=== PATIENT | male | born 1935 | race Caucasian/White ===

== ENCOUNTER 2019-01-27 06:51 | Observation (INO) ==
[2019-01-27] MEDS ORDERED: MIDAZOLAM HCL 1 MG/ML 2ML VIAL ONE (08:23)
[2019-01-27] MEDS ORDERED: HEPARIN (PORCINE) 1000 UNIT/ML 10 ML (CATH LAB USE ONLY) ONE (08:23)
[2019-01-27] MEDS ORDERED: NiCARDipine HCL INJ 2.5 MG/ML 10 ML AMP ONE (08:23)
[2019-01-27] MEDS ORDERED: fentaNYL citrate 100 MCG/2 ML VIAL ONE (08:23)
[2019-01-27] MEDS ORDERED: NITROGLYCERIN/D5W 100MCG/ML 20ML SYR ONE (08:24)
--- NOTE | 2019-01-27 08:33 | History & Physical Bridge Note ---
Date of Service January 27, 2019 History & Physical Bridge Note I have examined the patient, reviewed the History & Physical and in the interval since the performance of the History & Physical I have noted the following changes of clinical significance: no changes noted. I have explained the risk benefit and intent of the procedure to the patient and he is willing to proceed.
[2019-01-27] MEDS ORDERED: CLOPIDOGREL BISULFATE 300 MG TAB ONE (09:33)
--- NOTE | 2019-01-27 09:36 | Cardiac Catheterization ---
Date of Service January 27, 2019 Cardiac Cath Report Cardiac Cath Report Procedure: 1. Coronary angiography 2. Left heart cath 3. Left ventriculogram History: This is an 83-year-old male patient with a history of a previous right coronary stent and nonobstructive coronary artery disease. He has been having ventricular arrhythmias and there was concern for ischemia. The patient had a pharmacologic nuclear stress test which revealed apical ischemia. He is now for a cardiac catheterization. Procedure summary: After informed consent was obtained the patient was taken to cardiac catheterization lab where access was obtained using a retrograde cylinder technique from the right transradial approach. Preformed 5 Cymro diagnostic catheters were utilized for the coronary angiograms. A 5 Cymro pigtail catheter was utilized for the left ventriculogram. Following the procedure the patient underwent coronary intervention and then was returned to the holding area the Auto Transport Driver in stable condition. ACC data: Start time 8:35 AM End time 8:51 AM Opening aortic pressure 119/59 Left ventricular pressure 146/11 Closing aortic pressure 137/60 Sedation 1 mg intravenous Versed IV fluid 30 cc normal saline Contrast 121 cc of Optiray Fluoroscopy time 4.6 minutes Radiation 1273 mGy DAP 8355 mGy/m. Right dominant system AUC score 9 Left ventriculogram: Left ventriculogram the left ventricle is of normal size with normal systolic function. The estimated left ventricular ejection fraction is around 60%. Mitral valve is competent. The aortic root and ascending aorta have normal morphology. Coronary angiography: Coronary angiography selective injections of the right coronary artery revealed to be dominant. There is a previous intracoronary stent in the midportion of the right coronary artery which is widely patent. The remainder the artery has minor luminal irregularities. Selective injections of the left coronary artery revealed a left main trunk to be widely patent. There is a large ramus branch from the left main trunk which is patent. There is a branch from the ramus artery which has an ostial stenosis. In the proximal left circumflex artery there is a high-grade stenosis in both the origin of the artery as well as proximally there is minor nonobstructive disease distally. There is minor nonobstructive disease in the proximal portion of the LAD with the remainder of the artery having minor luminal irregularities but is widely patent all the way to the apex of the heart. Summary: The patient's previous coronary stent in the right coronary artery is patent. The LAD has nonobstructive disease. The left circumflex artery has a high-grade stenosis in its proximal segment. There is a large ramus from the left main trunk that has a branch artery that has an ostial stenosis. Left ventricular function is normal. Recommendations: The recommendations coronary intervention on the left circumflex artery.
--- NOTE | 2019-01-27 09:36 | Post Anesthesia Assessment ---
Date of Service January 27, 2019 Post Sedation Assessment Vital Signs Temp Resp BP Pulse Ox 01/27/19 07:05 36.6 C 17 179/90 H 96 Recovery Score Activity: Moves 4 extremities Respiration: Deep Breath/Cough Circulation: +/-20% PreAnes Value Consciousness: Fully Awake Oxygen Saturation: O2 needed for >90% Discharge Sedation Level of Care: Fast Track Phase II Post Sedation Plan On clinical assessment, the patient appears to have tolerated the sedation without complications. Patient is recovering as anticipated. Patient will continue to be monitored by nursing and may be discharged when sedation discharge criteria are met per below protocol. Upon Completions of procedure and additional 15 minutes continue every 5 minute vital signs and the P.A.R. score; then discharge to a Phase I or Fast Track to Phase II per the following guidelines: * Discharge Patient to appropriate Phase II area if PAR is 8 or greater or return to pre- procedure baseline. The post - procedure orders will be as directed. * If PAR score is less than 8 or not return to pre-procedure baseline then patient will follow Phase I monitoring till PAR is reached for Phase II. The Phase I may be done in procedure room or may call to secure a Phase I area. * If naloxone or flumazenil are used for reversal, hold in Phase I for continued monitoring from when last reversal dose was given for a minimum of 60 minutes or longer pending the nurse and/or physician discretion of patient condition before discharge to Phase II. Please call the Sedation Physician to re-evaluate and complete post-note for discharge to Phase II area. Do NOT discharge from procedure sedation or Phase 1 until post- sedation evaluation note is complete by procedure /sedation MD Sedation Discharge Instructions to be given to the patient at discharge to home.
[2019-01-27] MEDS ORDERED: ACETAMINOPHEN 325 MG TAB PO PRN (09:38)
[2019-01-27] MEDS ORDERED: ONDANSETRON INJ 2 MG/ML 2 ML VIAL IV PRN (09:38)
--- NOTE | 2019-01-27 09:38 | Post Operative Brief Note ---
Cardiology Brief Post Op Date of Surgery January 27, 2019 Pre & Post Diagnosis Operation Date: 01/27/19 08:00 <No data on this case meets the specified criteria> Procedure -- Consulting Sme Mikel Lacy MD Stock Pitcher [facility] Estimated Blood Loss 10 Findings Consistent with Post-Op Diagnosis For full details of patient's coronary angiography please see cath report dictated by Dr. Almaraz. Briefly patient found to have severe ostial/proximal circumflex disease with questionable thrombus. PCI of ostial/proximal circumflex with 2.25 x 18 Reese DUANE post dilated with 2.5 NC. Good angiographic result and patient tolerated procedure well. Disposition Disposition: PCU
[2019-01-27] MEDS ORDERED: SODIUM CHLORIDE 0.9% 1000ML 1,000 ML IV SCH (09:45)
[2019-01-27] MEDS ORDERED: ATORVASTATIN 40 MG TAB PO SCH (21:00)
--- NOTE | 2019-01-27 21:44 | Cardiac Catheterization ---
[facility] Data: Enrobing Machine Corder Cardiac Status Clinical evaluation leading to the procedure CAD Presenation: Positive Stress Test Anginal Classification: CCS III Heart Failure: No Cardiogenic Shock within 24 Hours: No Cardiac Arrest within 24 Hours: No Imaging Studies Past 6 Months: Yes Stress Studies Past 6 Months: Yes Stress Testing w/SPECT MPI: Yes - Positive and Risk/Extent of Ischemia (Intermediate) Diagnostic Physicians Name: Mikel Lacy MD Status: Elective Closure Device Percutaneous Entry Location: Radial Closure Device: Radial Band Recommendations: PCI without planned CABG PCI Indication: + Stress Test Lesion Segment Name: proximal circumflex Culprit Artery: Yes Stenosis Prior to Rx (%): 70-80 Chronic Total Occlusion: No IVUS: No FFR: No Pre-Procedure CLARISSA Flow: 3 Previously Treated Lesion: No Lesion Complexity: Non-High/Non-C Lesion Length (mm): 15 Thrombus Present: Yes Bifurcation Lesion: Yes Guidewire Across Lesion: Stenosis Post-Procedure (%): 0 Post-Procedure CLARISSA Flow: 3 Devices(s) Deployed: Yes Yes Intraprocedure Events Significant Disection: No Perforation: No Cardiac Cath Procedure Full Procedure Date January 27, 2019 Pre-Procedure Diagnosis Pre-Procedure Diagnosis: Positive Stress Test AUC Score AUC Score: 7 Post-Procedure Diagnosis Post-Procedure Diagnosis: Severe CAD and Successful PCI Procedure(s) Performed Procedure(s) Performed: Coronary Angiography and Drug Eluting Stent Soa Integration Architect Mikel Lacy MD Dentofacial Orthopedics Dentist(s) Chance Estimated Blood Loss Estimated Blood Loss: 15 Medication(s) Medication(s): Fentanyl, Heparin, Nicardipine, Nitroglycerin and Versed Summary of Findings Indication: Frequent ectopy, abnormal stress test Access: 6Fr right radial artery Catheters: EBU 3.5 guide Findings: For full details of patient's coronary angiography please see cath report dictated by Dr. Almaraz. Briefly patient found to have severe ostial/proximal circumflex disease with questionable thrombus. -- PCI -- Antithrombotic therapy: Heparin, Clopidogrel Procedure: Left main cannulated with EBU 3.5 guide Storage Facility Housekeeper 50 wire passed across lesion into distal circumflex BMW wire passed into OM1 Ostial/proximal circumflex lesion predilated with 2.0 compliant balloon Dilated lesion stented with 2.25 x 18 Whipple DUANE Stent post-dilated with 2.5 noncompliant balloon IC vasodilators administered for spasm Post procedure CLARISSA 3 flow, stent well expanded with minimal residual stenosis and no apparent cardiac complications. Arterial Closure: TR Band Summary: 1. Successful PCI of ostial/proximal circumflex with 2.25 x 18 Whipple DUANE post dilated with 2.5 NC. Recommendations: To PCU for continued monitoring Loaded with Aspirin/Clopidogrel Continue dual-antiplatelet therapy for at least 1 year in the setting of questionable circumflex thrombus Continue statin, and ASCVD risk factor modification Consult cardiac Rehab Hemodynamics Rest Ao:: -- Final Ao: -- LV: -- Recommendations Recommendations: PCI without planned CABG Specimens Specimens: None Radiation Exposure (mGy) -- Contrast (mls) -- Anesthesia moderate Procedural Complication(s) None Disposition PCU
[2019-01-28 06:18] LABS: Basophils # (auto) 0.05 K/uL (0-0.2); Basophils % (auto) 0.7 %; Eosinophils # (auto) 0.44 K/uL (0-0.5); Eosinophils % (auto) 5.8 %; Hematocrit (blood only) 37.8 % (42-52); Hemoglobin 13.1 g/dL (14.0-18.0); Immature Granulocytes # (auto) 0.02 K/uL (0.00-0.02); Immature Granulocytes % (auto) 0.3 %; Lymphocytes # (auto) 1.54 K/uL (1.2-3.4); Lymphocytes % (auto) 20.4 %; Mean Corpuscular Hgb Conc 34.7 g/dL (32-36); Mean Corpuscular Volume 93.8 fL (80-100); Mean Platelet Volume 10.8 fL (7.4-10.4); Monocytes # (auto) 0.62 K/uL (0.11-0.59); Monocytes % (auto) 8.2 %; Neutrophils # (auto) 4.88 K/uL (1.4-6.5); Neutrophils % (auto) 64.6 %; Platelet Count 112 K/uL (130-400); RDW Coefficient of Variation 13.8 % (11.5-14.5); RDW Standard Deviation 47.4 fL (36.4-46.3); Red Blood Count 4.03 M/uL (4.7-6.1); White Blood Count 7.55 K/uL (4.8-10.8)
[2019-01-28] MEDS ORDERED: LEVOTHYROXINE SODIUM 50 MCG TABLET PO SCH (06:30)
[2019-01-28 06:51] LABS: BUN Creatinine Ratio 15.2 (10-20); Calcium 8.7 mg/dl (8.5-10.1); Creatinine Clr Calc Pharmacy 59.3 ml/min; Est GFR (African American) 83.3; Est GFR (Non-African American) 71.9; Potassium 3.3 mmol/L (3.5-5.1)
[2019-01-28] MEDS ORDERED: LISINOPRIL 40 MG TAB PO SCH (09:00)
[2019-01-28] MEDS ORDERED: ISOSORBIDE DINITRATE 10 MG TAB PO SCH (09:00)
[2019-01-28] MEDS ORDERED: ASPIRIN LOW PO SCH (09:00)
[2019-01-28] MEDS ORDERED: PANTOprazole 40 MG TAB PO SCH (09:00)
[2019-01-28] MEDS ORDERED: CLOPIDOGREL BISULFATE 75 MG TAB PO SCH (09:00)
[2019-01-28] MEDS ORDERED: ASPIRIN 81 MG ECTAB PO SCH (09:00)
[2019-01-28] MEDS ORDERED: POTASSIUM CHLORIDE 20 MEQ TABCR PO STA (09:10)
--- NOTE | 2019-01-28 10:45 | Cardiology Progress Note ---
Date of Service January 28, 2019 Assessment & Plan (1) Coronary artery disease: Status post 01/27/2019 PCI of the left circumflex coronary artery with a drug-eluting stent without complication. Discharge home. Cardiology follow-up in 2 to 3 weeks or as needed. Follow-up with PCP Supervising Physician Co-Signing Physician Notes The patient is ready for discharge. Outpatient follow-up has been arranged. The only new medication for this patient is Plavix 75 mg daily. Subjective Patient seen and examined. Chart, medications, telemetry reviewed. Continuous telemetry monitoring reveals sinus with frequent premature ventricular complexes. On initial telemetry the patient had very frequent PVCs that improved/lessened overnight. There was one 16 beat run of ventricular tachycardia observed at 1: 51 AM. Laboratory work this morning revealed mild hyperkalemia for which she was prescribed 20 Omer use of oral potassium chloride it appears that the patient did not receive metoprolol succinate (25 mg/take). The patient feels well. He has been up and active without issue. He is anxious for discharge. He specifically denies chest pain, palpitations, shortness of breath, dizziness, lightheadedness, near syncope, fever, chills, or bleeding issues. Review of Systems Review of Systems: Unobtainable due to cognitive status Physical Exam Physical Exam: General: A&Ox3. NAD. HEENT: Normocephalic. Atraumatic. PER. Conjunctiva pink, sclera clear. Neck: No carotid bruits. No JVD. No HJR. Heart: Regular with occasional ectopy. Soft apical systolic murmur. No diastolic murmur. No rub. Lungs: Diminished. Decrease. Clear to auscultation. Abdomen: +BS. Soft. Nontender. No masses or organomegaly. Extremities: The right radial access is bandaged with a dressing clean, dry, intact. No hematoma. No clubbing. No cyanosis. No peripheral edema. Limited neurological examination is without focal deficits. Pulses: radial=2/4, posterior tibial=2/4 Results & Data Vital Signs (Past 12 Hours) Vital Signs Temp Pulse Pulse Resp BP Pulse Ox 01/28/19 08:02 36.9 C 64 19 154/71 H 96 01/28/19 03:04 36.6 C 55 L 16 161/73 H 95 01/27/19 23:43 61 01/27/19 23:01 36.5 C 70 18 148/73 H 97 Laboratory Results - last 24 hr 01/27/19 01/27/19 01/28/19 09:11 10:10 06:01 WBC 7.55 RBC 4.03 L Hgb 13.1 L Hct 37.8 L MCV 93.8 MCH 32.5 MCHC 34.7 RDW Std Deviation 47.4 H RDW Coeff of Mariano 13.8 Plt Count 112 L MPV 10.8 H Immature Gran % (Auto) 0.3 Neut % (Auto) 64.6 Lymph % (Auto) 20.4 Caroline % (Auto) 8.2 Eos % (Auto) 5.8 Baso % (Auto) 0.7 Immature Gran # (Auto) 0.02 Neut # (Auto) 4.88 Lymph # (Auto) 1.54 Caroline # (Auto) 0.62 H Eos # (Auto) 0.44 Baso # (Auto) 0.05 Activ Coag Time Kaolin 252 H Sodium Potassium Chloride Carbon Dioxide Anion Gap BUN Creatinine Est Cr Clr Drug Dosing Est GFR ( Amer) Est GFR (Non-Af Amer) BUN/Creatinine Ratio Glucose Calcium Nasal Screen MRSA (PCR) Negative 01/28/19 06:01 WBC RBC Hgb Hct MCV MCH MCHC RDW Std Deviation RDW Coeff of Mariano Plt Count MPV Immature Gran % (Auto) Neut % (Auto) Lymph % (Auto) Caroline % (Auto) Eos % (Auto) Baso % (Auto) Immature Gran # (Auto) Neut # (Auto) Lymph # (Auto) Caroline # (Auto) Eos # (Auto) Baso # (Auto) Activ Coag Time Kaolin Sodium 143 Potassium 3.3 L Chloride 110 H Carbon Dioxide 26 Anion Gap 7.0 BUN 15 Creatinine 0.97 Est Cr Clr Drug Dosing 59.3 Est GFR ( Amer) 83.3 Est GFR (Non-Af Amer) 71.9 BUN/Creatinine Ratio 15.2 Glucose 90 Calcium 8.7 Nasal Screen MRSA (PCR)
--- NOTE | 2019-01-28 10:53 | Discharge Summary ---
Date of Service January 28, 2019 Admission HPI Per Admitting Provider Date of Admission: January 27, 2019 Date of Discharge: January 28, 2019 Reason for Admission: Cardiac catheterization, percutaneous coronary intervention (PCI). Procedure: Cardiac catheterization, PCI of the ostial/proximal left circumflex coronary artery with a 2.25 x 18 Oxyn drug eluting stent. Access: Right radial artery. Complications: None Medication Changes: Addition of Clopidogrel (Plavix) 75 mg/day. All other medications are to be continued as prescribed Hospital Course: Mr. Hubbard is an 83-year-old male with history of coronary artery disease who is been having very frequent asymptomatic multifocal premature ventricular complexes. Work-up in [place], [place] included nuclear stress testing which revealed apical ischemia. Due to the above concerns he was referred for diagnostic cardiac catheterization. Diagnostic cardiac catheterization performed by Dr. Almaraz on January 27, 2019 revealed a high-grade proximal left circumflex stenosis with questionable thrombus. Anatomy was right dominant with the previously placed stent noted to be patent. The left main was noted to be widely patent. A branch vessel off of the ramus was noted to have an ostial stenosis. The proximal portion of the LAD was noted to have nonobstructive disease while the remaining artery had minor luminal irregularities. Following the diagnostic catheterization the patient underwent successful PCI of the ostial/proximal left circumflex coronary artery with a 2.25 x 18 Reese drug-eluting stent. Following stent to palpitation following stent implantation the patient was admitted to the progressive care unit for continuous monitoring. He was loaded with aspirin and clopidogrel in the catheterization laboratory with interventional recommendations to include continuation of dual antiplatelet therapy at least 1 year due to the questionable left circumflex thrombus. Additional recommendations include continuation of aspirin, risk factor, lifestyle modification, and referral for cardiac rehabilitation. The patient was admitted to progressive care unit where his monitor on continuous telemetry monitoring. Telemetry revealed sinus as the predominant rhythm with very frequent PVCs initially, less frequent PVCs as time went on. There was one 16 beat run of ventricular tachycardia at 1:51 AM on 01/28/2019 that was asymptomatic. Laboratory work revealed mild hypokalemia that was replaced with oral potassium supplementation. He is notably not given metoprolol succinate (25 mg/day) yesterday for reasons that are unclear; this was restarted in the morning of January 28, 2019. Additional notable laboratory work included a complete blood count with mild thrombocytopenia, 112 K. White blood cell count was normal, 7.55. H&H were 13.1 and 37.8. BUN and creatinine were 15 and 0.97. Sodium was 143. Bicarb is 26. Random glucose 90. Calcium 8.7. Admission Exam (Per Admitting) Constitutional General: A&Ox3. NAD. HEENT: Normocephalic. Atraumatic. PER. Conjunctiva pink, sclera clear. Neck: No carotid bruits. No JVD. No HJR. Heart: Regular with occasional ectopy. Soft apical systolic murmur. No diastolic murmur. No rub. Lungs: Diminished. Decrease. Clear to auscultation. Abdomen: +BS. Soft. Nontender. No masses or organomegaly. Extremities: The right radial access is bandaged with a dressing clean, dry, intact. No hematoma. No clubbing. No cyanosis. No peripheral edema. Limited neurological examination is without focal deficits. Pulses: radial=2/4, posterior tibial=2/4 Discharge Data Consultations Consult Cardiac Rehabilitation Routine Procedures Performed Operation Date: 01/27/19 08:00 Actual Procedures s Cineradiography w/Routine Exam(Right) - Jayant Almaraz DO p Cath, Left with Cors and Vent - Jayant Almaraz, s Drug Eluting Stent SGl Vessel - Cristo Lacy MD Discharge Instructions Cardiology follow-up at [facility] in 2 to 3 weeks. Office aware; will call patient/family with appointment Supervising Physician Co-Signing Physician Notes The patient is ready for discharge. We have arranged follow-up as an outpatient.
[2019-01-28] MEDS ORDERED: METOPROLOL SUCC 25MG EXT REL TAB PO SCH (11:00)
== END 2019-01-28 14:01 | disposition home or self-care (01) ==
LOC: CC 06:51 → 1E 06:51 → 2S 17:45

== ENCOUNTER 2019-12-28 07:06 | Observation (INO) ==
[2019-12-28] MEDS ORDERED: BUPIVACAINE 0.25% 30 ML VIAL ONE (07:31)
[2019-12-28] MEDS ORDERED: LIDOCAINE HCL 1% 20 ML VIAL ONE (07:31)
[2019-12-28] MEDS ORDERED: BACITRACIN INJ 50,000 UNIT VIAL ONE (07:31)
[2019-12-28] MEDS ORDERED: MIDAZOLAM HCL 5 MG/ML 1 ML VIAL ONE (07:42)
[2019-12-28] MEDS ORDERED: CEFAZOLIN 250 MG/ML 1 GM VIAL ONE (07:42)
[2019-12-28] MEDS ORDERED: fentaNYL citrate 100 MCG/2 ML VIAL ONE (07:42)
--- NOTE | 2019-12-28 07:59 | Pre Anesthesia Assessment ---
Date of Service December 28, 2019 Pre Sedation Assessment Vital Signs Temp Pulse Resp BP Pulse Ox 12/28/19 07:21 36.7 C 60 14 181/95 H 96 Cardiovascular RRR, no murmur, no edema Respiratory normal respiratory effort, lungs clear to auscultation Pre-Sedation Airway Assessment Smoking Status: Never smoker Hx Sleep Apnea: No Short, Thick Neck: No Thyromental Distance: > or= 3.5 Finger Breadths Oral Cavity: + Dentures Mallampati Class: III ASA: ASA3 NPO Status Date of Last Intake of Fluids: 12/27/19 Time of Last Intake of Fluids: 22:00 Date of Last Intake of Solid Food: 12/27/19 Time of Last Intake of Solid Foods: 22:00 Procedure Planning Contraindications for Sedation: none Current Medications Reviewed: Yes Notes The planned sedation has been discussed with the patient. Informed Consent was obtained. I have identified the patient, determined the appropriateness of sedation and have assessed the patient immediately prior to the procedure. All medicine(s) and interventions are by my order.
--- NOTE | 2019-12-28 07:59 | History & Physical Bridge Note ---
Date of Service December 28, 2019 History & Physical Bridge Note I have examined the patient, reviewed the History & Physical and in the interval since the performance of the History & Physical I have noted the following changes of clinical significance: no changes noted
[2019-12-28] MEDS ORDERED: HydrALAZINE HCL 20 MG/ML VIAL ONE (08:33)
[2019-12-28] MEDS ORDERED: ENALAPRILAT 2.5 MG/2 ML 2ML VIAL ONE ×2 (09:04→09:06)
[2019-12-28] MEDS ORDERED: ACETAMINOPHEN 325 MG TAB PO PRN (09:19)
--- NOTE | 2019-12-28 09:19 | Post Anesthesia Assessment ---
Date of Service December 28, 2019 Post Sedation Assessment Vital Signs Temp Pulse Resp BP Pulse Ox 12/28/19 07:21 36.7 C 60 14 181/95 H 96 Recovery Score Activity: Moves 4 extremities Respiration: Deep Breath/Cough Circulation: +/-20% PreAnes Value Consciousness: Fully Awake Oxygen Saturation: > 92% On Room Air Discharge Sedation Level of Care: Fast Track Phase II Post Sedation Plan On clinical assessment, the patient appears to have tolerated the sedation without complications. Patient is recovering as anticipated. Patient will continue to be monitored by nursing and may be discharged when sedation discharge criteria are met per below protocol. Upon Completions of procedure up to 15 minutes continue every 5 minute vital signs and the P.A.R. score; then discharge to a Phase I or Fast Track to Phase II per the following guidelines: * Discharge Patient to appropriate Phase II area if PAR is 8 or greater or return to pre- procedure baseline. The post - procedure orders will be as directed. * If PAR score is less than 8 or not return to pre-procedure baseline then patient will follow Phase I monitoring till PAR is reached for Phase II. The Phase I may be done in procedure room or may call to secure a Phase I area. * If naloxone or flumazenil are used for reversal, hold in Phase I for continued monitoring from when last reversal dose was given for a minimum of 60 minutes or longer pending the nurse and/or physician discretion of patient condition before discharge to Phase II. Please call the Sedation Physician to re-evaluate and complete post-note for discharge to Phase II area. Do NOT discharge from procedure sedation or Phase 1 until post- sedation evaluation note is complete by procedure /sedation MD Sedation Discharge Instructions to be given to the patient at discharge to home.
--- NOTE | 2019-12-28 09:19 | Operative Report ---
Post Operative Report Pre & Post Diagnosis Pre: TBS Post: Same Operation Date: 12/28/19 08:00 <No data on this case meets the specified criteria> I identified the patient and participated in the time-out.: Yes Procedure Operation Date: 12/28/19 08:00 Actual Procedures p Pacer with A/V Leads (Dual) - Magui Yee DO s Venogram, Unilateral - Magui Yee DO Surgeon Magui Yee, Kier Drier none Estimated Blood Loss 15 Findings Consistent with Post-Op Diagnosis Specimens none Description of Procedure see offical report I attest to the content of the Intraoperative Record and any orders documented therein. Any exceptions are noted below.
--- NOTE | 2019-12-28 09:26 | Discharge Summary ---
Date of Service December 29, 2019 Admission HPI Per Admitting Provider pt admitted for elective ppm due to TBS Admission Exam Per Admitting Provider aaox3, NAD NC/AT, EOMI Supple No JVD Nrl S1/S2, bradycardia, + murmur CTA b/l no w/r/r soft nt/nd no LE edema b/l skin intact no focal deficits Principal Diagnosis TBS s/p ppm Discharge Exam aaox3, NAD NC/AT, EOMI Supple No JVD Nrl S1/S2, +murmur CTA b/l no w/r/r soft nt/nd no LE edema b/l skin intact no focal deficits left pectoral incision intact, no hematoma mild ecchymosis Discharge Data Allergies Allergy/AdvReac Type Severity Reaction Status Date / Time Sulfa (Sulfonamide AdvReac Verified 01/27/19 07:22 Antibiotics) Procedures Performed Operation Date: 12/28/19 08:00 Actual Procedures p Pacer with A/V Leads (Dual) - Magui Yee DO s Venogram, Unilateral - Magui Yee DO Ordered Studies CXR: No PTX, leads in position ECG: AP-VS Pacemaker interrogation: Normal function stable lead testing since implant 12/28/19 06:37 CL Cath Imgs for PACS use only Stat Hospital Course (1) Tachy-pieter syndrome: (2) PAT (paroxysmal atrial tachycardia): (3) NSVT (nonsustained ventricular tachycardia): start amiodarone 200mg daily (4) HTN (hypertension): Total Time Total Time Spent Total Time Spent (In Minutes): 40 Total Time Includes: Examination of the Patient, Discharge Planning, Medication Reconciliation and Other Discharge Plan Discharge Items Patient Disposition: Home - Self-Care Reason For Visit: Tachybrady Syndrome/ DUAL CHAMBER PACER Discharge Diagnosis: TBS s/p ppm Condition on Discharge: Good Activity: As commented below Activity Comment: do not raise the left elbow over the left shoulder for 1 month Lifting: No more than 10 pounds Lifting Comment: do not lift more than 10 pounds with the left arm for 2 weeks Bathing: Keep incision dry Bathing Comment: keep dressing on and dry until wound check next week Non-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 next week as scheduled Medications are the same with the following changes: 1. increase the metoprolol to 50mg daily (so with your current prescription take 2 tabs) I will send a new script in through [facility] EMR. 2. Start amiodarone 200mg daily (I will send this to your pharmacy through [facility] EMR) Pending Studies at Discharge: No Stand-Alone Forms: My [facility] Medications and DC Order Prescriptions: New amiodarone 200 mg Tablet 200 mg PO QAM 30 Days Qty: 30 RF: 0 metoprolol succinate 50 mg Tablet Extended Release 24 Hr 50 mg PO QAM 30 Days Qty: 30 RF: 0 Continued levothyroxine [Synthroid] 50 mcg Tablet 75 mcg PO DAILY RF: 0 lisinopril 40 mg Tablet 40 mg PO DAILY RF: 0 allopurinol 100 mg Tablet 100 mg PO DAILY RF: 0 Aspirin Low Dose 81 mg PO DAILY RF: 0 Lipitor 20 mg PO HS RF: 0 pantoprazole [Protonix] 40 mg Tablet,Delayed Release (Dr/Ec) 20 mg PO DAILY RF: 0 clopidogrel 75 mg Tablet 75 mg PO QAM Qty: 0 RF: 3 donepezil 5 mg Tablet 5 mg PO DAILY RF: 0 isosorbide mononitrate 30 mg Tablet Extended Release 24 Hr 30 mg PO DAILY RF: 0 Discontinued metoprolol succinate 25 mg tablet extended release 24 hr 12.5 mg PO QAM RF: 0 Discharge Orders: Discharge Order (Routine); Ordered 12/29/19 Ordered By: Magui Yee Admission Data Admit Date/Time: 12/28/19 10:05 Attending Provider: Magui Yee Admit Provider: Magui Yee Primary Care Provider: Shahab García
[2019-12-28] MEDS: DONEPEZIL HCL 5 MG TAB PO SCH (10:28)
[2019-12-28] MEDS: lisinopriL 40 MG TAB PO SCH (10:28)
[2019-12-28] MEDS: CLOPIDOGREL BISULFATE 75 MG TAB PO SCH (10:28)
[2019-12-28] MEDS: METOPROLOL SUCC 50MG EXT REL TAB PO SCH (10:28)
[2019-12-28] MEDS: LEVOTHYROXINE SODIUM 75 MCG TABLET PO SCH (10:29)
[2019-12-28] MEDS: PANTOprazole 40 MG TAB PO SCH (10:29)
[2019-12-28] MEDS: ASPIRIN 81 MG ECTAB PO SCH (10:29)
--- NOTE | 2019-12-28 15:42 | Electrocardiogram Report ---
Test Reason : Blood Pressure : / mmHG Vent. Rate : 065 BPM Atrial Rate : 065 BPM P-R Int : 224 ms QRS Dur : 092 ms QT Int : 434 ms P-R-T Axes : 000 041 231 degrees QTc Int : 451 ms Atrial-paced rhythm with prolonged AV conduction with occasional Premature ventricular complexes Abnormal ECG When compared with ECG of 27-JAN-2019 10:22, Electronic atrial pacemaker has replaced Sinus rhythm T wave inversion now evident in Anterior leads Confirmed by Mikel Olivier ([id number]) on 12/28/2019 3:42:18 PM Referred By: Magui Yee Confirmed By:Jeffy Olivier
[2019-12-28] MEDS ORDERED: ATORVASTATIN 20 MG TAB PO SCH (21:00)
[2019-12-29] MEDS ORDERED: HydrALAZINE HCL 20 MG/ML VIAL IV STA (05:01)
[2019-12-29] MEDS ORDERED: HydrALAZINE HCL 20 MG/ML VIAL IV PRN (05:03)
[2019-12-29] MEDS: LEVOTHYROXINE SODIUM 75 MCG TABLET PO SCH (05:22)
--- NOTE | 2019-12-29 07:09 | XRay Report ---
XR chest 2V PA/lateral CLINICAL HISTORY: Pacemaker placement COMPARISON STUDY: No previous studies for comparison. FINDINGS: There is a left subclavian dual-chamber central venous pacemaker. Electrode position is unr emarkable. There is no evidence of pneumothorax. The heart is at the upper limits of normal in size. There is aortic tortuosity. There is no failure. There is no lobar consolidation.[ IMPRESSION: No evidence of pneumothorax status post left subclavian pacemaker placement ACT 112: Negative or not required by law. Electronically signed by: Dexter Zepeda M.D. 12/29/2019 7:08 AM
[2019-12-29] MEDS: PANTOprazole 40 MG TAB PO SCH (08:19)
[2019-12-29] MEDS: CLOPIDOGREL BISULFATE 75 MG TAB PO SCH (08:19)
[2019-12-29] MEDS: lisinopriL 40 MG TAB PO SCH (08:19)
[2019-12-29] MEDS: ASPIRIN 81 MG ECTAB PO SCH (08:19)
[2019-12-29] MEDS: DONEPEZIL HCL 5 MG TAB PO SCH (08:19)
[2019-12-29] MEDS: METOPROLOL SUCC 50MG EXT REL TAB PO SCH (08:19)
[2019-12-29] MEDS ORDERED: allopurinoL 100 MG TAB PO SCH (09:00)
[2019-12-29] MEDS ORDERED: ISOSORBIDE MONO EXTENDED REL 30 MG TABCR PO SCH (09:00)
[2019-12-30] MEDS ORDERED: AMIODARONE 200 MG TAB PO SCH (09:00)
--- NOTE | 2020-01-13 06:40 | Operative Report (OR) ---
DATE OF OPERATION: 12/28/2019 PREOPERATIVE DIAGNOSIS: Tachybrady syndrome. POSTOPERATIVE DIAGNOSIS: Tachybrady syndrome. PROCEDURE: Dual chamber rate responsive permanent pacemaker along with peripheral venogram under fluoroscopic guidance. SURGEON: Magui Yee DO. ASSISTANTS: None. ANESTHESIA: Monitored conscious sedation administered under my supervision by Vicky Courtney. Start time 8:12, end time 9:14. Total of 3 mg of Versed and 75 mcg of fentanyl. INTRAVENOUS FLUIDS: 115 mL. ANTIBIOTICS: Two grams of Ancef. CONTRAST: 10 mL of OptiView. ADDITIONAL MEDICATIONS: 20 mg of hydralazine and 5 mg of Vasotec. BLOOD LOSS: 20 mL. URINE OUTPUT: Not applicable. SPECIMENS: None. FINDINGS: See below. DRAINS: None. INDICATIONS: This is an 84-year-old gentleman who has a past medical history for coronary artery disease with a history of PCI to the RCA in 2008, hypothyroidism, mild dementia, first degree AV block, PAT, PVCs and nonsustained VT along with sinus pieter. He has evidence of tachybrady syndrome and was recommended a pacemaker. CONSENT: Consent was obtained prior to the patient going into electrophysiology lab. The patient was informed of the risks, benefits and alternatives to the procedure. Risks include but not limited to sudden cardiac , cardiac arrhythmia, cerebrovascular accident, myocardial infarction, injury to the blood vessels, chamber of the heart, lung, bleeding, and infection. The patient understood these risks and agreed to the procedure as planned. Informed consent was obtained. DESCRIPTION OF THE PROCEDURE: The patient was brought into electrophysiology lab in a fasting state. He was connected to continuous cardiac monitoring. A timeout was performed to ensure patient identity and procedure correctly. The patient was prepped and draped over the left infraclavicular space in normal surgical standard fashion. Monitored conscious sedation was given throughout the procedure for patient's comfort level. [place] precautions were maintained throughout the procedure. He received prophylactic antibiotics prior to incision. 10 mL of 1% lidocaine, bupivacaine mixture were given in the left deltopectoral groove. Incision was made in left deltopectoral groove. Blunt dissection was performed down to identify cephalic vein; however, none could be identified, so a peripheral venogram using 10 mL of contrast was performed to identify the axillary vein. Venous axillary access was obtained through a needlestick without any problems. An 8-Greek sheath was inserted over the guidewire without any resistance. The sheath dilator was removed and a second guidewire was inserted through the sheath to allow for retained venous access. Sheath was removed, flushed and reinserted over the dilator and then reinserted over one of the guidewires. The guidewire and dilator removed. The right ventricular lead was then advanced into right ventricle. I did have to reposition it at one time, but ultimately placed in the right ventricular apex under fluoroscopic guidance with good sensing and thresholds and there was no diaphragmatic stimulation with high output pacing. The 8-Greek sheath was peeled away and lead was fixated to pectoralis muscle using 0 silk suture. A second 8-Greek sheath was inserted over the retained guidewire without any resistance. Guidewire and dilator removed. Right atrial lead was then advanced into right atrium and positioned into the usual appendage under fluoroscopic guidance. There was adequate pacing and sensing thresholds and no diaphragmatic stimulation with high output pacing. The 8-Greek sheath was peeled away and lead was fixated to pectoralis muscle using 0 silk suture. A pacemaker pocket was created using blunt dissection over the pectoralis muscle within the pectoralis fascia. The pocket was flushed with copious amounts of bacitracin saline wash and inspected for hemostasis. Pulse generator was then attached to the leads making sure the pins were in appropriate position, passed set screw and set screws were all tightened. Pulse generator was then placed in the pocket, making sure that the leads were lying flat beneath the device. A stay stitch using 0 silk suture was used to secure the device to pectoralis muscle. The incision was closed in 3-layer fashion with 2-0 Vicryl interrupted suture followed by 3-0 Vicryl interrupted suture followed by 4-0 Monocryl running stitch and Dermabond was applied followed by Tegaderm, Telfa and micropore dressing. EQUIPMENTS: 1. Pulse generator is a [employer] XT DR BEBE Cannon [id number], serial number [id number]. 2. Right atrial lead Medtronic 5076-52 cm, serial #[id number]. 3. Right ventricular lead, Medtronic 5076-58 cm, serial #[id number]. INTRAOPERATIVE TESTIN. Right atrial lead: P waves 1.8 millivolts, impedance 532 ohms, threshold 0.9 volts at 0.4 milliseconds. 2. Right ventricular lead: R waves 8.2 millivolts, impedance 855 ohms, threshold 0.4 volts at 0.4 milliseconds. FINAL MEASUREMENTS THROUGH THE DEVICE: 1. Right atrial lead: P waves 1.1 millivolts, impedance 551 ohms, threshold 0.5 volts at 0.4 milliseconds. 2. Right ventricular lead: R-wave 7 millivolts, impedance 855 ohms, threshold 0.5 volts at 0.4 milliseconds. FINAL PARAMETERS: MVP-R 60/130, right atrial amplitude 3.5 volts, pulse width 0.4 milliseconds, sensitivity 0.45 millivolts. Right ventricular amplitude 3.5 volts, pulse width 0.4 milliseconds, sensitivity 1.2 millivolts. IMPRESSION: Successful implantation of a dual chamber rate responsive permanent pacemaker under fluoroscopic guidance along with peripheral venogram secondary to tachybrady syndrome. PLAN: Monitor patient overnight, 12-lead ECG, chest x-ray. He cannot lift the left elbow or left shoulder for 1 month. He cannot lift more than 10 pounds with the left arm for 2 weeks. He is to keep the dressing on and dry until his wound check the following week. I attest to the content of the Intraoperative Record and any orders documented therein. Any exceptions are noted below. TEE
== END 2019-12-29 12:37 | disposition home health service (06) ==
LOC: 2S 07:06 → EP 07:06